=== PATIENT | female | born 1995 | race Caucasian/White ===

== ENCOUNTER 2016-07-27 10:38 | Emergency (ER) | payer OTHER ==
[~2016-07-27] VITALS: Ht 165.1 cm; Wt 60.5 kg
[~2016-07-27 10:38] MED LIST: ALBU8.5H3 INH
[2016-07-27 10:41] VITALS: Ht 165.1 cm; Wt 60.5 kg
[2016-07-27] MEDS ORDERED: ACETAMINOPHEN 500 MG TAB PO STA (11:37)
[2016-07-27] MEDS ORDERED: SOD CHLORIDE 0.9% 1,000 ML IV ONE (12:00)
[2016-07-27 12:09] LABS: ADD SCAN DIFF NO
[2016-07-27 12:13] LABS: BASOPHILS % 0.1 % (0.0-2.0); HEMOGLOBIN 13.2 g/dl (12.0-16.0); LYMPHOCYTES # 1.3 10^3/ul (0.8-2.9); LYMPHOCYTES % 8.8 % (15.0-51.0); MEAN CORPUSCULAR HEMOGLOBIN 29.7 pg (29.0-33.0); MEAN CORPUSCULAR HGB CONC 32.2 g/dl (32.0-37.0); MEAN CORPUSCULAR VOLUME 92.1 fl (82.0-101.0); MEAN PLATELET VOLUME 9.4 fl (7.4-10.4); MONOCYTE # 1.1 10^3/ul (0.3-0.9); MONOCYTES % 7.7 % (0.0-11.0); NEUTROPHIL # 11.8 10^3/ul (1.6-7.5); NEUTROPHILS % 82.8 % (39.0-77.0); PLATELET COUNT 192 10^3/UL (140-415); RED BLOOD COUNT 4.45 10^6/ul (4.20-5.40); RED CELL DISTRIBUTION WIDTH 12.8 % (11.5-14.5); WHITE BLOOD COUNT 14.2 10^3/ul (4.8-10.8)
[2016-07-27 12:25] LABS: CHLORIDE 98 mmol/L (97-110)
[2016-07-27 12:26] LABS: POTASSIUM 4.1 mmol/L (3.5-5.1); SODIUM 137 mmol/L (135-144)
[2016-07-27 12:26] LABS: ADD UMIC YES; URINE BILIRUBIN (Dip) NEGATIVE (NEGATIVE); URINE BLOOD (Dip) 1+ (NEGATIVE); URINE COLOR LT. YELLOW (YELLOW); URINE GLUCOSE (Dip) NEGATIVE (NEGATIVE); URINE KETONES (Dip) 40 (NEGATIVE); URINE LEUKOCYTE ESTERASE (Dip) 3+ (NEGATIVE); URINE NITRITE (Dip) POSITIVE (NEGATIVE); URINE TOTAL PROTEIN (Dip) 1+ (NEGATIVE); URINE UROBILINOGEN (Dip) 0.2 E.U./dL (0.1-1.0)
[2016-07-27 12:28] LABS: ALANINE AMINOTRANSFERASE 26 IU/L (13-69); ALBUMIN/GLOBULIN RATIO 1.02; ALKALINE PHOSPHATASE 74 IU/L (42-121); ANION GAP 18 (8-16); ASPARTATE AMINO TRANSFERASE 28 IU/L (15-46); BILIRUBIN,INDIRECT 0.4 mg/dl (0-1.1); BILIRUBIN,TOTAL 0.4 mg/dl (0.2-1.3); BLOOD UREA NITROGEN 13 mg/dl (7-20); CARBON DIOXIDE 25 mmol/L (21-31); CREATININE 1.28 mg/dl (0.44-1.00); GLUCOSE 123 mg/dl (70-220); TOTAL PROTEIN 7.9 g/dl (6.1-8.1)
[2016-07-27 12:40] LABS: TROPONIN-I < 0.012 ng/ml (0.00-0.12)
[2016-07-27 12:55] LABS: INR 1.2; PROTIME 15.3 Sec (12.2-14.2); PT RATIO 1.2
[2016-07-27 12:59] LABS: PARTIAL THROMBOPLASTIN TIME 35.5 Sec (25.0-35.0)
[2016-07-27 13:04] LABS: URINE RBCS 0-2 /HPF (0)
[2016-07-27 13:05] LABS: BACTERIA,URINE MODERATE
--- NOTE | 2016-07-27 13:12 | RADRPT ---
PROCEDURE: US Pelvis CLINICAL INDICATION: PELVIC PAIN TECHNIQUE: Multiple sonographic images of the pelvis were obtained utilizing a transabdominal and endovaginal technique. The images were reviewed on a PACS workstation. COMPARISON: None. LMP: 07/12/2016 FINDINGS: The uterus measures 6.2 x 3.2 x 3.6 cm. The endometrial echo complex measures 4 mm in thickness. N o discrete lesion is seen. The right ovary measures 2.5 x 1.3 x 2.1 cm. The left ovary measures 3.1 x 1.9 x 2.1 cm. There is no rmal vascular flow in both ovaries. No significant ovarian lesions are seen. No significant pelvic free fluid is identified. IMPRESSION: Unremarkable pelvic ultrasound, as above. RPTAT: EE Physician Rudy Date Time Electronically viewed and signed by Physician Rudy on 07/27/2016 13:11 /
--- NOTE | 2016-07-27 13:19 | RADRPT ---
PROCEDURE: CT Abdomen and Pelvis without contrast. CLINICAL INDICATION: Left flank pain and pelvic pain. TECHNIQUE: CT scan of the abdomen and pelvis without contrast was performed on a multi-slice CT [facility] without intravenous contrast. Coronal and sagittal reformatted images were obtained from the axial source images. Images were reviewed on a high-resolution PACS workstation. One or more of the following does reduction techniques were used: Automated exposure control; adjustment of the mA an d/or kV according to patient size; use of the aorta of reconstruction technique. The total exam CTD I equals is 7.77 mGy and the total exam DLP equals there are an 24.9 mGy-cm. COMPARISON: None available. FINDINGS: Evaluation of the lung bases is limited due to breathing artifact. The lung bases are grossly clear . Heart size is normal, and there is no evidence of pericardial thickening or effusion. The liver, spleen, and pancreas are normal given limitations of a noncontrast CT examination. The g allbladder is normal. The adrenal glands are normal. The left kidney is normal without evidence of calcification or hydro nephrosis. There is mild to moderate right hydroureteronephrosis. The distal ureter is not clearly identified. Multiple pelvic calcifications appear represent phleboliths. There is a 2 mm calcific ation posterior to the right bladder which may represent a tiny distal ureteral calcification, best suggested on the sagittal views. There are moderate right perinephric changes. The aorta is of normal caliber. There is no retroperitoneal lymph node enlargment. There is no evidence of large or small bowel obstruction. Clips are noted in the expected location of the appendix, likely related to prior appendectomy. The appendix is not identified. No free fl uid or fluid collections are identified. No inflammatory changes are seen. The uterus is present. There is a 3.0 x 2.9 cm mass in the right adnexa containing fat, soft tissue , and calcium consistent with a mature teratoma. There is no pelvic free fluid. No enlarged pelvic sidewall lymph nodes are seen. The bladder is within normal limits. No free fluid is identified. The inguinal regions are unremarkable. The bones are intact. IMPRESSION: 1. Mild to moderate right hydroureteronephrosis. The distal right ureter is not well seen, and sev eral pelvic phleboliths confound evaluation. There is a 2 mm calcification just posterior to the ri ght bladder which may represent a tiny distal ureteral calcification versus phlebolith. Differential diagnosis includes a passed ureteral stone and pyelonephritis. 2. Sutures in the cecum are most consistent with prior appendectomy. Recommend correlation with razo rgical history. 3. 3.0 cm mature teratoma in the right adnexa. RPTAT: KK .Alfonso Carranza MD, Date Time Electronically viewed and signed by .Alfonso Carranza MD, on 07/27/2016 13:18 .B/
[2016-07-27] MEDS ORDERED: SOD CHLORIDE 0.9% IV ONE (13:30)
[2016-07-27] MEDS ORDERED: CEFTRIAXONE 1 GM INJ IVPB ONE (13:30)
[2016-07-27] MEDS ORDERED: KETOROLAC 30 MG INJ IV STA (13:32)
[2016-07-27] MEDS ORDERED: CIPR500T4 PO (14:37)
[2016-07-27] MEDS ORDERED: ACET500C5 PO (14:38)
[2016-07-27] MEDS ORDERED: ONDA4TAB8 PO (14:38)
--- NOTE | 2016-07-27 14:46 | ERD ---
ER Documentation Chief Complaint Date/Time DATE: 07/27/16 TIME: 14:41 Chief Complaint rt flank pain x 2 days with nausea/vomiting HPI Patient is a 20-year-old female who presents to the ED with 2 weeks of dysuria, urgency and back pain. She states that in the last 2 days her pain has gotten worse, her pain is located in her pelvic area and she complains of dysuria, back pain, fevers. 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 However she states that her symptoms continued and have gotten worse in the last 2 days. She also complains of chills. She denies of vomiting or diarrhea but complains of nausea. Last bowel movement was today. She is not taking any other medication besides Advil for her symptoms. She also complains of back pain. She denies headache or dizziness. Chest pain, cough, shortness of breath or difficulty breathing. No other complaints. ROS All systems reviewed and are negative except as per history of present illness. Medications Home Meds Active Scripts Ondansetron Hcl* (Zofran*) 4 Mg Tablet, 4 MG PO Q6H for NAUSEA AND/OR VOMITING, #30 TAB Prov:JASON SILVEIRA-C 07/27/16 Acetaminophen* (Tylophen*) 500 Mg Capsule, 1 CAP PO Q6H Y for PAIN AND OR ELEVATED TEMP, #20 CAP Prov:JASON SILVEIRA-C 07/27/16 Ciprofloxacin Hcl* (Ciprofloxacin Hcl*) 500 Mg Tablet, 500 MG PO BID for 7 Days , TAB Prov:JASON SILVEIRA-C 07/27/16 Albuterol Sulfate* (Proair HFA*) 8.5 Gm Hfa.aer.ad, 2 PUFF INH Q4, #1 INHALER Prov:CHAD CULVER DO 02/11/16 Allergies Allergies: Coded Allergies: No Known Allergy (Unverified , 02/11/16) PMhx/Soc Medical and Surgical Hx: pt denies Medical Hx, pt denies Surgical Hx History of Surgery: Yes (Appendectomy) Anesthesia Reaction: No Hx Neurological Disorder: No Hx Respiratory Disorders: No Hx Cardiac Disorders: No Hx Psychiatric Problems: No Hx Miscellaneous Medical Probl: No Hx Alcohol Use: No Hx Substance Use: No Hx Tobacco Use: No Smoking Status: Never smoker FmHx Family History: No coronary disease, No diabetes, No other Physical Exam Vitals Vital Signs Date Time Temp Pulse Resp B/P Pulse Ox O2 Delivery O2 Flow Rate FiO2 07/27/16 15:32 99.4 83 19 106/55 100 Room Air 07/27/16 10:41 104.4 116 18 120/71 98 Physical Exam GENERAL: Well-developed, well-nourished female. Appears in mild HEAD: Normocephalic, atraumatic. EYES: Pupils are equally reactive bilaterally. EOMs grossly intact. No conjunctival erythema. ENT: Moist mucous membranes. No uvula deviation. No kissing tonsils. No exudates. NECK: Supple. No lymphadenopathy or thyromegaly. No meningismus. negative kernig. negative brudinski. LUNG: Clear to auscultation bilaterally. No rhonchi, wheezing, rales or coarse breath sounds. HEART: Regular rate and rhythm. No murmurs, rubs or gallops. ABDOMEN: No scars, ecchymosis or rashes noted. Soft,and nondistended. Positive bowel sounds in all four quadrants. No rebound tenderness, no guarding. (-) McBurneys point tenderness. Bilateral CVA tenderness. Pelvic pain bilateral. And generalized abdominal pain with no focal tenderness. BACK: No midline tenderness. Extremities: Equal pulses bilaterally. No peripheral clubbing, cyanosis or edema. No unilateral leg swelling. NEUROLOGIC: Alert and oriented. Moving all four extremities. 5/5 strength in all extremities. Normal speech. Steady gait. SKIN: Normal color. Warm and dry. No rashes or lesions. Capillary refill < 2 seconds Result Diagram: 07/27/16 1150 07/27/16 1150 Results 24 hrs Laboratory Tests Test 07/27/16 11:44 07/27/16 11:50 Urine Color LT. YELLOW Urine Clarity SLIGHTLY CLOUDY Urine pH 6.0 Urine Specific [place] 1.010 Urine Ketones 40 Urine Nitrite POSITIVE Urine Bilirubin NEGATIVE Urine Urobilinogen 0.2 E.U./dL Urine Leukocyte Esterase 3+ Urine Microscopic RBC 0-2/HPF Urine Microscopic WBC >200/HPF Urine Epithelial Cells FEW Urine Bacteria MODERATE Urine Hemoglobin 1+ Urine Glucose NEGATIVE% Urine Total Protein 1+ White Blood Count 14.210^3/ul Red Blood Count 4.4510^6/ul Hemoglobin 13.2g/dl Hematocrit 41.0% Mean Corpuscular Volume 92.1fl Mean Corpuscular Hemoglobin 29.7pg Mean Corpuscular Hemoglobin Concent 32.2g/dl Red Cell Distribution Width 12.8% Platelet Count 22911^3/UL Mean Platelet Volume 9.4fl Neutrophils % 82.8% Lymphocytes % 8.8% Monocytes % 7.7% Eosinophils % 0.0% Basophils % 0.1% Nucleated Red Blood Cells % 0.0/100WBC Neutrophils # 11.810^3/ul Lymphocytes # 1.310^3/ul Monocytes # 1.110^3/ul Eosinophils # 0.010^3/ul Basophils # 0.010^3/ul Nucleated Red Blood Cells # 0.010^3/ul Prothrombin Time 15.3Sec Prothrombin Time Ratio 1.2 INR International Normalized Ratio 1.20 Activated Partial Thromboplast Time 35.5Sec Sodium Level 137mmol/L Potassium Level 4.1mmol/L Chloride Level 98mmol/L Carbon Dioxide Level 25mmol/L Anion Gap 18 Blood Urea Nitrogen 13mg/dl Creatinine 1.28mg/dl Glucose Level 123mg/dl Lactic Acid Level 1.3mmol/L Calcium Level 9.0mg/dl Total Bilirubin 0.4mg/dl Direct Bilirubin 0.00mg/dl Indirect Bilirubin 0.4mg/dl Aspartate Amino Transf (AST/SGOT) 28IU/L Alanine Aminotransferase (ALT/SGPT) 26IU/L Alkaline Phosphatase 74IU/L Troponin I < 0.012ng/ml Total Protein 7.9g/dl Albumin 4.0g/dl Globulin 3.90g/dl Albumin/Globulin Ratio 1.02 Lipase 74U/L Current Medications Medications (Trade) Dose Ordered Sig/Ok Route PRN Reason Start Time Stop Time Status Last Admin Dose Admin Acetaminophen 1000 mg 1,000 mg ONCE STAT PO 07/27/16 11:37 07/27/16 11:42 DC 07/27/16 12:00 Sodium Chloride (NS) 1,000 ml @ 1,000 mls/hr Q1H ONCE IV 07/27/16 12:00 07/27/16 12:59 DC 07/27/16 12:00 Ceftriaxone Sodium 1 gm 1 gm ONCE ONCE IVPB 07/27/16 13:30 07/27/16 13:31 DC 07/27/16 13:57 Sodium Chloride (NS) 1,880 ml @ 1,880 mls/hr BOLUS X1 ONCE IV 07/27/16 13:30 07/27/16 14:29 DC 07/27/16 13:56 Ketorolac Tromethamine (Toradol) 30 mg ONCE STAT IV 07/27/16 13:32 07/27/16 13:33 DC 07/27/16 13:56 Procedures/MDM ER COURSE: I kept the patient and/or family informed of laboratory and diagnostic imaging results throughout the emergency room course. EKG, MONITORS, & DIAGNOSTIC IMAGING: [place] [id number] Radiology Main Line: [phone] DIAGNOSTIC IMAGING REPORT Patient: ROSANGELA MOYA : 1995 Age: 20 Sex: F MR #: [id number] DOS: 07/27/16 1147 Ordering MD: JASON SILVEIRA PA-C Location: [facility] Room/Bed: PROCEDURE: US Pelvis CLINICAL INDICATION: PELVIC PAIN TECHNIQUE: Multiple sonographic images of the pelvis were obtained utilizing a transabdominal and endovaginal technique. The images were reviewed on a PACS workstation. COMPARISON: None. LMP: 07/12/2016 FINDINGS: The uterus measures 6.2 x 3.2 x 3.6 cm. The endometrial echo complex measures 4 mm in thickness. No discrete lesion is seen. The right ovary measures 2.5 x 1.3 x 2.1 cm. The left ovary measures 3.1 x 1.9 x 2.1 cm. There is normal vascular flow in both ovaries. No significant ovarian lesions are seen. No significant pelvic free fluid is identified. IMPRESSION: Unremarkable pelvic ultrasound, as above. RPTAT: EE Physician Rudy Date Time Electronically viewed and signed by Physician Rudy on 07/27/2016 13:11 RA/ CC: JASON SILVEIRA PA-C [place] [id number] Radiology Main Line: [phone] DIAGNOSTIC IMAGING REPORT Patient: ROSANGELA MOYA : 1995 Age: 20 Sex: F MR #: [id number] DOS: 07/27/16 1137 Ordering MD: JASON SILVEIRA PA-C Location: [facility] Room/Bed: PROCEDURE: CT Abdomen and Pelvis without contrast. CLINICAL INDICATION: Left flank pain and pelvic pain. TECHNIQUE: CT scan of the abdomen and pelvis without contrast was performed on a multi-slice CT scanner without intravenous contrast. Coronal and sagittal reformatted images were obtained from the axial source images. Images were reviewed on a high-resolution PACS workstation. One or more of the following does reduction techniques were used: Automated exposure control; adjustment of the mA and/or kV according to patient size; use of the aorta of reconstruction technique. The total exam CTDI equals is 7.77 mGy and the total exam DLP equals there are an 24.9 mGy-cm. COMPARISON: None available. FINDINGS: Evaluation of the lung bases is limited due to breathing artifact. The lung bases are grossly clear. Heart size is normal, and there is no evidence of pericardial thickening or effusion. The liver, spleen, and pancreas are normal given limitations of a noncontrast CT examination. The gallbladder is normal. The adrenal glands are normal. The left kidney is normal without evidence of calcification or hydronephrosis. There is mild to moderate right hydroureteronephrosis. The distal ureter is not clearly identified. Multiple pelvic calcifications appear represent phleboliths. There is a 2 mm calcification posterior to the right bladder which may represent a tiny distal ureteral calcification, best suggested on the sagittal views. There are moderate right perinephric changes. The aorta is of normal caliber. There is no retroperitoneal lymph node enlargment. There is no evidence of large or small bowel obstruction. Clips are noted in the expected location of the appendix, likely related to prior appendectomy. The appendix is not identified. No free fluid or fluid collections are identified. No inflammatory changes are seen. The uterus is present. There is a 3.0 x 2.9 cm mass in the right adnexa containing fat, soft tissue, and calcium consistent with a mature teratoma. There is no pelvic free fluid. No enlarged pelvic sidewall lymph nodes are seen. The bladder is within normal limits. No free fluid is identified. The inguinal regions are unremarkable. The bones are intact. IMPRESSION: 1. Mild to moderate right hydroureteronephrosis. The distal right ureter is not well seen, and several pelvic phleboliths confound evaluation. There is a 2 mm calcification just posterior to the right bladder which may represent a tiny distal ureteral calcification versus phlebolith. Differential diagnosis includes a passed ureteral stone and pyelonephritis. 2. Sutures in the cecum are most consistent with prior appendectomy. Recommend correlation with surgical history. 3. 3.0 cm mature teratoma in the right adnexa. RPTAT: KK .Alfonso Carranza MD, MD Date Time Electronically viewed and signed by .Alfonso Carranza MD, MD on 2016 13:18 .B/ CC: JASON SILVEIRA PA-C PROCEDURES: IV fluids, Tylenol, Zofran. Tolerated well with no adverse reaction. Toradol and Rocephin. Tolerated well and stated improvement in symptoms. LAB INTERPRETATION: CBC showed no evidence of severe anemia, 14.2 white count with a shift of 82.8 CMP showed no evidence of electrolyte abnormalities, severe acidosis, alkalosis , renal failure, or liver disease. Lipase showed no evidence of acute pancreatitis. Urine test was negative. Urinalysis showed 3+ leukocytes, positive nitrites and 1+ hemoglobin. MEDICAL DECISION MAKING: This is a 20-year-old female who presents with dysuria, urgency, fevers and back pain. Vital signs were reviewed. Patient is not hypoxic. Patient had a temperature of 104.4 in the ED. With a pulse of 116. I consulted with Dr. bangura who came to examine patient at bedside and reviewed imaging studies and laboratory studies. Patient has pyelonephritis and nephrolithiasis. Low suspicion for ovarian torsion, PID, tuboovarian abscess, ectopic , bowel obstruction, appendicitis, cervicitis, septic , molar , HELLP syndrome, preeclampsia, eclampsia, placenta previa, placenta abruptia. Low suspicion for septic stone or obstructive stone. Patient is stable for outpatient therapy. Plan was discussed with patient. I reexamined patient and patient states that she is feeling much better after administration of medication and her temperature is down trending. Patient is stable to be treated with outpatient therapy. DISCHARGE: At this time, patient is stable for discharge and outpatient management with no new complaints during the ER course. Patient was sent home with Zofran, Tylenol , ciprofloxacin. Patient advised to follow-up with Dr. Brandt urology.patient will be discharged home with instructions to recheck for new or worsening symptoms such as fever, nausea, weakness, LOC and to follow up with primary care in the next 1-2 days. Patient was advised to return to the ER for any new or worsening symptoms. Plan was discussed and patient and/or family understands and agrees. Home instructions were given. Departure Diagnosis: Primary Impression: Pyelonephritis Condition: Stable Patient Instructions: Understanding Urinary Tract Infections (UTIs), Preventing Kidney Stones Additional Instructions: Call your primary care doctor TOMORROW for an appointment during the next 1-2 days.See the doctor sooner or return here if your condition worsens before your appointment time. JASON SILVEIRA PA-C Jul 27, 2016 14:46
[2016-07-27 15:32] VITALS: BP 106/55; PULSE 83; RESP 19; TEMP 99.4
== END 2016-07-27 15:46 | disposition home or self-care (01) ==
LOC: FTE 10:38
DX: N12 Tubulo-interstitial nephritis, not specified as acute or chronic (principal); R11.0 Nausea; R10.2 Pelvic and perineal pain
CPT/HCPCS: 74176; 76830; 76856; 80053; 81001; 81003; 83605; 83690; 84484; 85025; 85610; 85730; 87040; 87086; 96374; 96375; J1885; J7030; Z7502; Z7610

== ENCOUNTER 2016-09-23 10:17 | Day surgery (SDC) | payer OTHER ==
[~2016-09-23] VITALS: Ht 175.3 cm; Wt 58.9 kg
[2016-09-23] VITALS (10 sets, daily range): BP systolic 99–117; BP diastolic 59–68; PULSE 54–72; RESP 13–19; Ht 175.3 cm; Wt 58.9 kg
[~2016-09-23 10:17] MED LIST changes: +ACET500C5 PO; +CIPR500T4 PO; +ONDA4TAB8 PO
[2016-09-23] MEDS ORDERED: SUCCINYLCHOLINE CHLORIDE 100 MG/5 ML SYG IV ONE (12:33)
[2016-09-23] MEDS ORDERED: ROCURONIUM 50 MG INJ ONE (12:33)
[2016-09-23] MEDS ORDERED: PROPOFOL 20 ML ONE (12:33)
[2016-09-23] MEDS ORDERED: FENTAnyl 50 MCG/ML VIAL ONE (12:33)
[2016-09-23] MEDS ORDERED: METOCLOPRAMIDE 10 MG INJ ONE (12:34)
[2016-09-23] MEDS ORDERED: ONDANSETRON 4 MG INJ ONE (12:34)
[2016-09-23] MEDS ORDERED: CEFAZOLIN 1 GM INJ ONE (12:34)
[2016-09-23] MEDS ORDERED: ONDANSETRON 4 MG INJ IV PRN (13:30)
[2016-09-23] MEDS ORDERED: FENTAnyl 50 MCG/ML VIAL IV PRN ×2 (13:30)
[2016-09-23] MEDS ORDERED: MEPERIDINE 25 MG INJ IV PRN (13:30)
[2016-09-23] MEDS ORDERED: HYDROmorphONE (0.2 MG/ML) 10ML SYG IV PRN ×3 (13:30)
--- NOTE | 2016-09-23 13:52 | DS ---
Date/Time of Note Date/Time of Note DATE: 09/23/16 TIME: 13:47 Discharge Summary Admission/Discharge Info Admit Date/Time 09/23/16 Discharge Date/Time 09/23/16 1630 Final Diagnosis vaginal wall cyst Procedures drainage ,partial excision, Hx of Present Illness small vaginal wall cyst Hospital Course satisfactory Home Meds Active Scripts Ondansetron Hcl* (Zofran*) 4 Mg Tablet, 4 MG PO Q6H for NAUSEA AND/OR VOMITING, #30 TAB Prov:JASON SILVEIRA PA-C 07/27/16 Acetaminophen* (Tylophen*) 500 Mg Capsule, 1 CAP PO Q6H Y for PAIN AND OR ELEVATED TEMP, #20 CAP Prov:JASON SILVEIRA PA-C 07/27/16 Ciprofloxacin Hcl* (Ciprofloxacin Hcl*) 500 Mg Tablet, 500 MG PO BID for 7 Days , TAB Prov:JASON SILVEIRA PA-C 07/27/16 Albuterol Sulfate* (Proair HFA*) 8.5 Gm Hfa.aer.ad, 2 PUFF INH Q4, #1 INHALER Prov:CHAD CULVER DO 02/11/16 Primary Care Provider Care Physician No MARQUITA Santo MD September 23, 2016 13:52
--- NOTE | 2016-09-23 14:39 | OPR ---
DATE OF OPERATION: 09/23/2016 PREOPERATIVE DIAGNOSIS: Right vaginal wall cyst approximately 2 x 2 cm. POSTOPERATIVE DIAGNOSIS: Right vaginal wall cyst approximately 2 x 2 cm. PROCEDURE: Drainage and excision of vaginal wall cyst. SURGEON: Marquita Henry MD ANESTHESIA: General. ANESTHESIOLOGIST: Dr. Olvera DETAILS OF THE PROCEDURE: Under satisfactory general anesthesia, the patient was prepped and draped and placed in dorsal lithotomy position. Bimanual pelvic exam, normal external genitalia, normal v aginal introitus, a small vaginal cyst on the right side of the vaginal wall, 2 to 3 cm away from in troitus. The base of the cyst was grasped by a Sharon and the cyst was drained and the lining of t he cyst was removed and submitted for the pathology. Then the vaginal mucosa and the site of the ba se of the cyst were closed with interrupted 2-0 chromic catgut. Estimated blood loss less than 5 mL . The patient tolerated procedure well, transferred to recovery room in a good condition. Dictated By: MARQUITA HENRY MD HF/NTS Conf#: [id number] DID#: [id number] CC: MARQUITA HENRY MD;*EndCC*
== END 2016-09-23 15:10 | disposition home or self-care (01) ==
LOC: SDS 10:17
PROVIDERS: ATTEND Obstetrics & Gynecology
DX: N89.8 Other specified noninflammatory disorders of vagina (principal)
CPT/HCPCS: 57135; 88305; J0690; J2405; J2765; J3010; J7999; Z7512; Z7610

== ENCOUNTER 2017-07-04 11:23 | Emergency (ER) | END 2017-07-04 16:58 | disposition home or self-care (01) ==